=== PATIENT | female | born 1980 | race Two or more races ===

== ENCOUNTER 2022-01-16 08:48 | Outpatient (CLI) | payer OTHER, SELFPAY ==
--- NOTE | 2022-01-16 | ECG_ITS ---
Measurements Intervals [place] Rate: 76 P: 44 UT: 182 QRS: 10 QRSD: 97 T: 19 QT: 370 QTc: 418 Interpretive Statements SINUS RHYTHM NO PREVIOUS ECG AVAILABLE FOR COMPARISON Electronically Signed On 01-16-2022 12:39:59 CDT by Livan Perla M.D.
== END 2022-01-16 08:49 | disposition home or self-care (01) ==
PROVIDERS: PCP Family Medicine; Visit Provider Obstetrics & Gynecology
DX: E66.9 Obesity, unspecified (principal)
CPT/HCPCS: 93005

== ENCOUNTER 2022-02-08 08:30 | Outpatient (CLI) | payer OTHER, SELFPAY ==
--- NOTE | ~2022-02-08 | US_ITS ---
EXAMINATION: US abdomen limited DATE: 02/08/2022 08:59 INDICATION: Upper abdominal pain TECHNIQUE: Multiple grayscale and Doppler ultrasound images of the abdomen were obtained. COMPARISON: None available FINDINGS: The head and body of the pancreas are normal. The pancreatic tail is obscured by bowel gas. The liver is normal with normal echogenicity and echotexture. No surface nodularity. Normal hepatope blade flow in the main portal vein. The gallbladder is normal with no abnormal wall thickening, pericho lecystic fluid or stones. The normal common bile duct measures 4 mm. There was no sonographic Gomez sign. IMPRESSION: 1. Normal sonographic study of the gallbladder. Reviewed, dictated and finalized at location B.
== END 2022-02-08 08:31 | disposition home or self-care (01) ==
PROVIDERS: PCP Family Medicine; Visit Provider Family Medicine
DX: R10.10 Upper abdominal pain, unspecified (principal)
CPT/HCPCS: 76705

== ENCOUNTER → 2023-02-15 14:48 | Outpatient (CLI) | payer OTHER, SELFPAY ==
--- NOTE | ~2023-02-15 | MM_ITS ---
EXAMINATION: MM screening myron BI w erick HISTORY: Screening TECHNIQUE: Craniocaudal and mediolateral oblique 3-D tomosynthesis images were obtained and synthetic 2-D images were generated. CAD analysis was submitted and interpreted. COMPARISON: 08/29/2018 BREAST PARENCHYMAL COMPOSITION: There are scattered areas of fibroglandular density. FINDINGS: There is no evidence of suspicious mass, calcification, or architectural distortion to sugg est malignancy in either breast. There has been no suspicious interval change. IMPRESSION: 1. No mammographic evidence of malignancy. 2. Recommend routine screening mammography in one year. BI-RADS Category 1: Negative Reviewed, dictated and finalized at location A.
== END ==
PROVIDERS: PCP Advanced Practice Midwife; Visit Provider Advanced Practice Midwife
DX: Z12.31 Encounter for screening mammogram for malignant neoplasm of breast (principal)
CPT/HCPCS: 77063; 77067

== ENCOUNTER 2023-04-10 09:06 | Outpatient (CLI) | payer OTHER, SELFPAY ==
[2023-04-10 10:45] LABS: SARS-CoV-2 RNA PCR Positive (Negative)
== END 2023-04-10 09:07 | disposition home or self-care (01) ==
LOC: ANHLAB 09:09
PROVIDERS: PCP Family Medicine; Visit Provider Physician Assistant Medical
DX: U07.1 COVID-19 (principal); R68.83 Chills (without fever); M79.10 Myalgia, unspecified site; J02.9 Acute pharyngitis, unspecified
CPT/HCPCS: 87635

== ENCOUNTER 2024-01-29 09:13 | Day surgery (SDC) | payer OTHER, SELFPAY ==
[2024-01-21 10:29] VITALS: BMI 36.0
[2024-01-21 12:21] VITALS: BMI 36.3
--- NOTE | 2024-01-28 11:31 | WPDANESEPPF ---
Anes - Initial Pre Proc Eval Procedure: Operation Date: 01/29/24 11:30 Proposed Procedures p Diagnostic Colonoscopy - Lopez Ambriz MD Date/Time: 01/28/24 11:31 Surgeon: Lopez Ambriz MD Pre Op Diagnosis: Other Fecal Abnormalities Patient Data Age: 43 Gender: F Height: 1.68 m Weight: 102 kg Allergies Allergy/AdvReac Type Severity Reaction Status Date / Time No Known Allergies Allergy Verified 01/29/24 10:20 Home Medications Medication Instructions Recorded Confirmed Type drospirenone (contraceptive) 4 mg 1 tablet PO DAILY 12/18/23 01/29/24 History (28) tablet (Slynd) Lactobacillus 1 cap PO DAILY 01/21/24 01/29/24 History acidophilus-Bifidobac.animalis 2.5 billion cell capsule (Daily Probiotic) multivitamin with minerals-folic 1 tablet PO DAILY 01/21/24 01/29/24 History acid 0.4 mg tablet tirzepatide (weight loss) 5 mg/0.5 5 mg (0.5 mL) subcut WEEKLY #2 mL 01/21/24 Rx mL subcutaneous pen injector Patient hx anesthesia problems: none Family hx anesthesia problems: none Results Review: All pre-operative results and documents have been reviewed as part of the pre-operative evaluation. [facility]LY [facility] Past Medical History Medical History Anxiety Surgical History Surgical History (Updated 01/28/24 @ 11:32 by Alexis Thorpe DO) History of delivery x4 History of tubal ligation Social History Social History Smoking status: Never smoker Second hand tobacco smoke exposure: No Alcohol intake: current Drinks per week: 6 Substance use: never Substance use type: does not use Living arrangements: with family Occupation/Education: occupation Gender identity (if verbalized by the patient): Female Spiritual care concerns: No Anes - Eval Final PreProcedure Day of Procedure 01/28/24 11:31 Patient weight: obese Heart: regular rate and rhythm Lungs: clear to auscultation Airway: Mallampati scale class II Neurological: alert and oriented Last oral intake: >/= 8 hours ASA classification: II Emergent: no Anesthetic plan: proceed Anesthesia type and monitoring: general GIVS and standard monitoring Results Review: All pre-operative results and documents have been reviewed as part of the pre-operative evaluation. Informed Consent: The patient's anesthetic plan and its attendant risks and benefits were discussed with the patient/family/POA. Questions were solicited and answers provided to the satisfaction of the patient/family/POA.
[2024-01-29 10:25] VITALS: BP 120/87; PULSE 82; RESP 16; TEMP 36.8; O2SAT 100; BMI 35.5
[2024-01-29] MEDS: LACTATED RINGERS 1,000 ML 150 ML IV CONT (10:39)
--- NOTE | 2024-01-29 10:53 | P.HP_ITS ---
History of Present Illness History of Present Illness Consent: Risks, benefits, and alternatives have been discussed and questions answered. Patient agrees to proceed with procedure. Chief complaint: Positive Cologuard test Narrative: Danelle Moeller is a 43 year old female presents for screening colonoscopy. Patient's current weight appetite and bowel movements are normal. Patient denies abdominal pain. She has had no bleeding. Family history is noncontri butory. Patient recently had positive Cologuard test. Review of Systems Review of Systems: All systems reviewed & are unremarkable except as noted in HPI and below PMFSH Past Medical History Medical History (Updated 01/29/24 @ 10:54 by Lopez Ambriz MD) Anxiety Surgical History Surgical History (Updated 01/28/24 @ 11:32 by Alexis Thorpe DO) History of delivery x4 History of tubal ligation Social History Social History Smoking status: Never smoker Second hand tobacco smoke exposure: No Alcohol intake: current Drinks per week: 6 Substance use: never Substance use type: does not use Living arrangements: with family Occupation/Education: occupation Gender identity (if verbalized by the patient): Female Spiritual care concerns: No Meds Home Medications and Allergies Home Medications Medication Instructions Recorded Confirmed Type drospirenone (contraceptive) 4 mg 1 tablet PO DAILY 12/18/23 01/29/24 History (28) tablet (Slynd) Lactobacillus 1 cap PO DAILY 01/21/24 01/29/24 History acidophilus-Bifidobac.animalis 2.5 billion cell capsule (Daily Probiotic) multivitamin with minerals-folic 1 tablet PO DAILY 01/21/24 01/29/24 History acid 0.4 mg tablet tirzepatide (weight loss) 5 mg/0.5 5 mg (0.5 mL) subcut WEEKLY #2 mL 01/21/24 Rx mL subcutaneous pen injector Allergies Allergy/AdvReac Type Severity Reaction Status Date / Time No Known Allergies Allergy Verified 01/29/24 10:20 Vital Signs Vital Signs - 24 hr 01/29/24 10:25 Temperature 98.3 F Pulse Rate 82 Respiratory Rate 16 Blood Pressure 120/87 Pulse Oximetry 100 Oxygen Delivery Room Air Exam Narrative: Physical exam reveals patient be alert. Vital signs stable. HEENT is unremarkable. Is anicteric. Lungs are clear to auscultation and percussion. Heart is without murmur extra sounds. Abdomen bowel sounds are present soft nontender with no organomegaly. Digital external rectal exam normal. Assessment and Plan Assessment and plan (1) Positive colorectal cancer screening using Cologuard test: Code(s): R19.5 - Other fecal abnormalities Status: Acute Assessment and Plan: Screening colonoscopy to be performed today because of positive Cologuard test.
[2024-01-29 12:24] VITALS: BP 109/68; PULSE 71; RESP 15; O2SAT 98
--- NOTE | 2024-01-29 12:28 | WPDANESPN ---
Anes - Prog Note Post-Op Date/Time: 01/29/24 12:28 Cardiovascular status: normal Respiratory status: normal Airway patency: baseline Mental status: baseline Post-Op hydration status: normal Vital Signs: Last Vital Signs Temp 36.8 C 01/29/24 10:25 Pulse 82 01/29/24 10:25 Resp 16 01/29/24 10:25 BP 120/87 01/29/24 10:25 Pulse Ox 100 01/29/24 10:25 O2 Del Method Room Air 01/29/24 10:25 Pain Score (VAS): 0 I/O: Intake & Output 01/28/24 01/29/24 01/29/24 23:59 07:59 15:59 Intake Total 400 Balance 400 Post-procedural complaints: none Patient Feedback: Patient satisfied with anesthetic care. Other Findings: Patient vital signs back to baseline. Patient denies nausea and vomiting. Patient's pain under control. Patient OK for discharge.
[2024-01-29 12:34] VITALS: BP 114/69; PULSE 64; RESP 16; O2SAT 100
[2024-01-29 12:44] VITALS: BP 114/80; PULSE 74; RESP 16; O2SAT 99
--- NOTE | 2024-01-29 12:58 | SUR.PHASEII ---
PT DRESSED. WAITING FOR RIDE TO ARRIVE AT FACILITY
== END 2024-01-29 13:02 | disposition home or self-care (01) ==
PROVIDERS: PCP Family Medicine; Visit Provider Internal Medicine Gastroenterology
PROC: 0DJD8ZZ Inspection of Lower Intestinal Tract, Via Natural or Artificial Opening Endoscopic (ICD-10-PCS; CPT 45378; principal; 2024-01-29 11:30)
DX: R19.5 Other fecal abnormalities (principal); K64.8 Other hemorrhoids
CPT/HCPCS: 45378

== ENCOUNTER 2024-05-12 16:23 | Outpatient (CLI) | payer OTHER, SELFPAY ==
--- NOTE | ~2024-05-12 | MM_ITS ---
EXAMINATION: MM screening myron BI w erick HISTORY: Screening TECHNIQUE: Craniocaudal and mediolateral oblique 3-D tomosynthesis images were obtained and synthetic 2-D images were generated. CAD analysis was submitted and interpreted. COMPARISON: Comparison to multiple prior studies sequentially, with oldest reviewed study dated 09/2018. BREAST PARENCHYMAL COMPOSITION: There are scattered areas of fibroglandular density. FINDINGS: There is no evidence of suspicious mass, calcification, or architectural distortion to sugg est malignancy in either breast. There has been no suspicious interval change. IMPRESSION: 1. No mammographic evidence of malignancy. 2. Recommend routine screening mammography in one year. BI-RADS Category 1: Negative Reviewed, dictated and finalized at location B. STOCKER
== END 2024-05-12 16:24 | disposition home or self-care (01) ==
LOC: MICIMG 16:24
PROVIDERS: PCP Family Medicine; Visit Provider Family Medicine
DX: Z12.31 Encounter for screening mammogram for malignant neoplasm of breast (principal)
CPT/HCPCS: 77063; 77067